=== PATIENT | female | born 1975 | race Caucasian/White ===

== ENCOUNTER 2019-01-28 20:53 | Emergency (ER) | payer SELFPAY ==
[~2019-01-28] VITALS: Ht 152.4 cm; Wt 73.7 kg
[~2019-01-28 20:53] MED LIST: CEPH-443 PO; NAPR-985 PO
[2019-01-28 21:10] VITALS: BP 121/67; PULSE 51; RESP 16; Ht 152.4 cm; Wt 73.7 kg
[2019-01-28] MEDS ORDERED: KETOROLAC 30 MG INJ IM STA (23:48)
== END 2019-01-29 01:41 | disposition home or self-care (01) ==
LOC: FTE 20:53
DX: N30.00 Acute cystitis without hematuria (principal)
CPT/HCPCS: 74176; 80053; 81001; 81025; 84703; 85025; 87086; 96372; 99285; J1885